=== PATIENT | female | born 1990 | race Caucasian/White ===

== ENCOUNTER → 2022-03-07 | Outpatient (CLI) | payer OTHER ==
--- NOTE | 2022-03-07 11:45 | US ---
EXAMINATION TYPE: US abdomen complete DATE OF EXAM: 03/07/2022 COMPARISON: NONE CLINICAL HISTORY: R945 ABN LIVER FUNCTION.Abnormal liver function test. EXAM MEASUREMENTS: Liver Length: 14.9 cm Gallbladder Wall: .3 cm CBD: .3 cm Spleen: 12.6 cm Right Kidney: 10.3 x 4.1 x 4.4 cm Left Kidney: 12.1 x 4.9 x 4.7 cm Limitations due to body habitus. Pancreas: Obscured by bowel gas Liver: Increased attenuation Gallbladder: No stones seen Evidence for sonographic Ho's sign: No CBD: wnl Spleen: wnl Right Kidney: wnl Left Kidney: wnl Upper IVC: wnl Abd Aorta: wnl The visualized liver is heterogeneously hyperechoic. Evaluation for focal masses suboptimal due to th e heterogeneity. No surrounding ascites. The intrahepatic portion of the IVC and proximal abdominal a galilea are within normal limits. There is no evidence of cholelithiasis. Common bile duct is unremark able. The visualized portions of the pancreas are homogenous. Portions are obscured by overlying bow el gas. The spleen is unremarkable. Kidneys are symmetric and free of hydronephrosis. No renal les ions are seen. IMPRESSION: Heterogeneous hyperechoic appearance of liver is likely on the basis of diffuse fatty inf iltration.
== END | disposition home or self-care (01) ==
LOC: RADUSWWP 09:55
PROVIDERS: ATTEND Internal Medicine
DX: K76.0 Fatty (change of) liver, not elsewhere classified (principal)
CPT/HCPCS: 76700

== ENCOUNTER → 2024-05-20 | Outpatient (CLI) | payer OTHER ==
--- NOTE | 2024-05-20 12:26 | XR ---
Left knee. HISTORY: Pain COMPARISON: None. TECHNIQUE: 3 views of the left knee were obtained. FINDINGS: There is no fracture, dislocation or focal intraosseous abnormality. There is no joint effusion. Ther e are no soft tissue abnormalities. There is possible mild narrowing of the medial compartment knee. IMPRESSION: 1. No evidence of acute trauma. 2. Possible mild degenerative change of the medial compartment the knee.
== END | disposition home or self-care (01) ==
LOC: RADXRYALE 11:08
PROVIDERS: ATTEND Internal Medicine
DX: M25.562 Pain in left knee (principal)

== ENCOUNTER → 2025-02-03 | Outpatient (CLI) | payer OTHER ==
[2025-02-03 12:49] VITALS: BP 122/80; PULSE 82; RESP 18; TEMP 97.4
--- NOTE | 2025-02-03 14:26 | P.PAINPG ---
Objective - Vital Signs Vital signs: Intake & Output 02/02/25 02/03/25 02/03/25 18:59 06:59 18:59 Weight 95.254 kg PQRS Measure Charge Sheet Comment: HISTORY OF PRESENT ILLNESS: A 34 yr old female as a referral from Dr Ryan presents today w severe and chronic neck pain > 3 mo secondary to radiculopathy, spondylosis and facet arthropathy without myelopathy for evaluation. Pt states pain level is provoked at 4-6 /10 in intensity, constant, localized in the cervical spine, predominantly axial, throbbing in character w occasional shooting pain towards the RUE. Pain is provoked by over activity. Pain is alleviated by PT x 6 wks which she is currently in, physician guided home exercises/ 4-5 times weekly since Jan 2025, medications, repositioning and rest . Cervical disability score at 23. PMH: OA PSH: Denies SH: Negative x3 FH: Non contributory All: See list Meds: See list incl Ibu, Neurontin REVIEW OF ORGAN SYSTEMS: CONSTITUTIONAL: No fevers or chills. No recent weight loss. NEUROLOGICAL: + numbness and tingling along the distal extremities. No seizure disorders or headaches. MUSCULOSKELETAL: + pain PSYCHIATRIC: Denies current depression or suicidal though ts. Physical Examinations : Constitutional : Cooperative , not in acute distress . Neurologic : Cranial nerve II to XII intact. No focal neurological deficits. Psychiatric : alert & oriented x 3. Matching mood & appropriate affect. Judgment & insight intact. Musculoskeletal : Cervical Spine Motor strength in the deltoid and biceps: Normal right side. Normal Left side Motor strength biceps and the wrist extensors: Normal right side . Normal left side Motor strength in the triceps muscle: Normal right side. Normal left side Deep tendon reflexes: Normal at the biceps. Normal at Brachioradialis. Normal at triceps Vertebral body tenderness to deep palpation over C6 Cervical facet loading test: positive bilaterally Spurling test: positive R C5-C6 Neck distraction test: positive R C6-C7 Aamir sign: positive bilaterally Lumbar spine Motor strength lower extremities ,thigh and legs 5/5 Right side , 5/5 Left side Deep tendon reflexes : Normal Knee Jerk. Normal Ankle Jerk Vertebral body tenderness over Huffman Test positive Lumbar facet Loading Test: positive Right / positive Left Range of motion of the lumbar spine Flexion 30 degrees, extension 10 degrees Straight Leg Raise test: Left/ Right positive at degrees Erika test: positive right / positive left. Severe tenderness over the Sacroiliac joint on the Right / Left sides Gaenslen test: positive bilaterally Seated flexion test: positive bilaterally. Sacral spine : Severe tenderness over the Sacroiliac joint: right side / left side Range of motion: Flexion of the lumbar spine <60 degrees Range of motion: Extension of the lumbar spine <20 degrees Gaenslen's Test positive Erika test: positive right side / left side Thigh Thrust Test Sacral Thrust Test Imaging: MRI non contrast lumbar spine from 01/03/25 reviewed MRI non contrast thoracic spine from 12/31/24 reviewed Assessment/ Plan : C5-C7 radiculopathy, Thoracic scoliosis, Tr6-T12 facet arthropathy Recommendation of WILMA C6-C7 #1. Risks, benefits of procedure discussed and patient verbalized understanding. Admits to anti- coagulant use or medical history of diabetes. Protocol for discontinuation/ continuation of medications antonia procedure discussed. All questions answered. I have spent greater than 30 minutes on patient care today. Dr Mcclelland was available by phone for the evaluation of this patient. The time was used to review the medical records including relevant urine studies and Prescription history (MAPs), review of the available imaging, evaluation and examination of the patient, coordination of care with the medical staff and if applicable referring physicians, as well as creation of the medical record - Pain Location Neck Non-Pharmacological Interventions: Position/Reposition PQRS Narrative: Smoking Status Never smoker Home Medications: Ambulatory Orders Pediatric Multivitamin No.76 [Gummy Dinos] 2 tab PO DAILY 10/23/15 Ferrous Sulfate [Feosol] 325 mg PO DAILY #60 tab 10/24/15 diazePAM [Valium] 5 mg PO DAILY 1 Days #2 tab 02/03/25 Controlled Substance Measures - Controlled Substance Measures Is patient prescribed a controlled substance at discharge?: Yes When asked, does pt state using other controlled substances?: No If prescribed controlled substance>3 days was MAPS reviewed?: Prescribed <3 Days
== END ==
LOC: PNWHC3 11:56
PROVIDERS: ATTEND Specialist
DX: M47.22 Other spondylosis with radiculopathy, cervical region (principal); M47.814 Spondylosis without myelopathy or radiculopathy, thoracic region; M41.9 Scoliosis, unspecified
CPT/HCPCS: 99211

== ENCOUNTER → 2025-03-04 | Day surgery (SDC) | payer OTHER ==
[~2025-03-04] MED LIST: DEXAMETHASONE SOD PHOSPHATE 10 MG/ML 1 ML VIAL ONE; IOPAMIDOL M200 10 ML VIAL ONE; LACTATED RINGERS 1,000 ML IV SCH
[2025-03-04 09:41] VITALS: TEMP 97
[2025-03-04 10:34] VITALS: RESP 16
--- NOTE | 2025-03-04 10:40 | FL ---
EXAMINATION TYPE: FL guided pain mgmt statistic Intraoperative/procedural fluoroscopic services were provided. CLINICAL INDICATION:Female, 34 years old with history of M54.12 CERV EPIDURAL STEROID INJ; , PHH FINDINGS: Single fluoroscopic image demonstrating cervical epidural steroid injection. No radiographic evidence for complication. Total fluoroscopy time is 14.2 seconds. DAP: [id number] [id number] Please see the operative/procedural note for further details. [facility], , 03/04/2025 10:37 AM
[2025-03-04 10:47] VITALS: BP 106/73; PULSE 62
--- NOTE | 2025-03-04 11:33 | P.PCN ---
Description of Procedure: PROCEDURE 1. Injection of radio contrast material into cervical epidural space, cervical epidurogram, interpretation of cervical epidurogram, Cervical epidural steroid injection under fluoroscopic guidance, C5-6 (fluoroscopy images available in the radiology department ) 2. Cervical epidurogram. PREOPERATIVE DIAGNOSIS: 1- Cervical Degenerative Disc Diseases 2- Cervical radiculopathy., 3-cervical spondylosis with cervical Facet arthropathy without myelopathy.4-cervical spinal stenosis POSTOPERATIVE DIAGNOSIS: : 1- Cervical Degenerative Disc Diseases , 2- Cervical radiculopathy. 3-,cervical spondylosis with cervical Facet arthropathy without myelopathy. 4-cervical spinal stenosis ANESTHESIA: Local anesthetics infiltration. In the OR continuous pulse ox, EKG, blood pressure and verbal communication was maintained. EBL : None PROCEDURE INDICATION: The patient with neck pain and radiculitis unresponsive to conservative treatment consents for procedure. Discussed the procedure, alternatives and possible complications which may include increased pain, infection, bleeding, nerve damage, paralysis all of which could be permanent. Patient understands and all questions were answered. PROCEDURE DESCRIPTION : After getting consent patient was taken to the OR , positioned in prone position and time out was completed. A pillow was placed under the patients chest to increase the cervical interlaminar space. The cervical area was prepped and draped in the usual sterile fashion. Using anterior-posterior fluoroscopy, interlaminar space was identified and the skin over this site was marked and then infiltrated with 1% lidocaine subcutaneously. Subsequently, a 20-gauge 3-1/2-inch Tuohy epidural needle was inserted and advanced toward the epidural space with the loss of resistance technique using a syringe filled with preservative-free normal saline and guided by AP and lateral fluoroscopy. Negative CSF, negative blood, negative paresthesia. The correct needle position in the epidural space was verified with the injection of 2 mL of the water soluble contrast dye [id number]-[id number] and observing an excellent epidurogram with the epidural spread of the dye, after repeat negative aspiration 3 mL solution was injected which consists of 1 mL of preservative-free normal saline mixed with 2 mL of 20 mg dexamethasone and a washout of epidurogram was seen. Needle was withdrawn intact, skin was cleansed, and bandages were applied. Disposition: Patient tolerated the procedure well. No complication. Patient was placed in supine position and transferred to the recovery room area in stable condition and there was no evidence of upper or lower extremity motor or sensory deficit after the procedure patient was discharged from recovery room after discharge criteria met and home discharge instructions was given by the staff and patient will follow with the pain clinic in 2-4 weeks
== END ==
LOC: ORPAIN 08:30
PROVIDERS: ATTEND Pain Medicine Interventional Pain Medicine
DX: M50.10 Cervical disc disorder with radiculopathy, unspecified cervical region (principal); M48.02 Spinal stenosis, cervical region; M47.22 Other spondylosis with radiculopathy, cervical region
CPT/HCPCS: 81025; 62321; J1100; Q9966

== ENCOUNTER 2025-05-01 21:38 | Emergency (ER) | payer OTHER ==
[2025-05-01] MEDS: KETOROLAC 15 MG/ML 1 ML VIAL IVP STA (22:18)
[2025-05-01] MEDS: SODIUM CHLORIDE 0.9% 1,000 ML IV SCH (22:19)
[2025-05-01] MEDS: HYDROmorphone 1 MG/ML 1 ML SYRINGE IVP STA (22:20)
--- NOTE | 2025-05-01 22:32 | ED ---
Back Pain HPI - General Chief Complaint: Back Pain/Injury Stated Complaint: Back Pain Time Seen by Provider: 05/01/25 21:40 Source: patient, EMS, RN notes reviewed, old records reviewed Limitations: physical limitation - History of Present Illness Initial Comments: This is a 34 female presenting today for back pain. Patient has history of recent back surgery now complaining of severe pain in her back at surgical site. Significant swelling and edema noted in the back no fevers patient feels short of breath no lightheadedness or weakness currently, she occasionally does have chest pain mainly severe back pain MD Complaint: back pain, back injury -: days(s) Similar Symptoms Previously: Yes Place: home Radiation: none Severity: moderate Severity scale (1-10): 7 Quality: stabbing Consistency: constant Improves With: none Worsens With: none Context: other (Recent surgery) Associated Symptoms: denies other symptoms Treatments Prior to Arrival: other - Related Data Home Medications Medication Instructions Recorded Confirmed Citalopram Hydrobromide 10 mg PO DAILY 03/02/25 03/02/25 [Citalopram HBr] Ibuprofen [Motrin Ib] 400 mg PO Q6H PRN 03/02/25 03/02/25 Previous Rx's Medication Instructions Recorded diazePAM [Valium] 5 mg PO DAILY 1 Days #2 tab 02/03/25 Allergies Allergy/AdvReac Type Severity Reaction Status Date / Time No Known Allergies Allergy Verified 05/01/25 21:56 Review of Systems ROS Statement: Those systems with pertinent positive or pertinent negative responses have been documented in the HPI. ROS Other: All systems not noted in ROS Statement are negative. Past Medical History Past Medical History: Musculoskeletal Disorder Additional Past Medical History / Comment(s): scoliosis History of Any Multi-Drug Resistant Organisms: None Reported Past Surgical History: No Surgical Hx Reported Past Anesthesia/Blood Transfusion Reactions: No Reported Reaction Past Psychological History: Anxiety Smoking Status: Never smoker, Unknown if ever smoked - Past Family History Mother Family Medical History: Rheumatoid Arthritis (RA) Father Family Medical History: Hypertension General Exam Limitations: physical limitation General appearance: alert, in no apparent distress Head exam: Present: atraumatic, normocephalic, normal inspection Eye exam: Present: normal appearance, PERRL, EOMI. Absent: scleral icterus, conjunctival injection, periorbital swelling ENT exam: Present: normal exam, mucous membranes moist Neck exam: Present: normal inspection. Absent: tenderness, meningismus, lymphadenopathy Respiratory exam: Present: normal lung sounds bilaterally. Absent: respiratory distress, wheezes, rales, rhonchi, stridor Cardiovascular Exam: Present: regular rate, normal rhythm, normal heart sounds. Absent: systolic murmur, diastolic murmur, rubs, gallop, clicks GI/Abdominal exam: Present: soft, normal bowel sounds. Absent: distended, tenderness, guarding, rebound, rigid Extremities exam: Present: normal inspection, full ROM, normal capillary refill. Absent: tenderness, pedal edema, joint swelling, calf tenderness Back exam: Present: normal inspection Neurological exam: Present: alert, oriented X3, CN II-XII intact Psychiatric exam: Present: normal affect, normal mood Skin exam: Present: warm, dry, intact, normal color. Absent: rash Course Vital Signs 05/01/25 05/01/25 05/02/25 21:47 23:30 01:11 Temperature 99.1 F 98.5 F 98.3 F Pulse Rate 104 H 99 95 Respiratory 19 19 18 Rate Blood Pressure 90/50 99/55 119/84 O2 Sat by Pulse 97 98 100 Oximetry - Reevaluation(s) Reevaluation #1: 05/01/25 23:07 Medical records reviewed Reevaluation #2: 05/01/25 23:07 Patient symptoms improved here in the ER Reevaluation #3: 05/01/25 23:07 Patient informed of results questions answered Reevaluation #4: Was pt. sent in by a medical professional or institution (, PA, PUG MACHINE OPERATOR, urgent care, hospital, or shelter...) When possible be specific @ -no Did you speak to anyone other than the patient for history (EMS, parent, family, police, friend...)? What history was obtained from this source @ -no Did you review nursing and triage notes (agree or disagree)? Why? @ -agree Are old charts reviewed (outside hosp., previous admission, EMS record, old EKG, old radiological studies, urgent care reports/EKG's, shelter records)? Report findings @ -yes Differential Diagnosis (chest pain, altered mental status, abdominal pain women, abdominal pain men, vaginal bleeding, weakness, fever, dyspnea, syncope, headache, dizziness, GI bleed, back pain, seizure, CVA, palpatations, mental health, musculoskeletal)? @ -prior EKG interpreted by me (3pts min.). @ -yes X-rays interpreted by me (1pt min.). @ -yes negative for acute disease CT interpreted by me (1pt min.). @ -no U/S interpreted by me (1pt. min.). @ -no What testing was considered but not performed or refused? (CT, X-rays, U/S, labs)? Why? @ -none What meds were considered but not given or refused? Why? @ -none Did you discuss the management of the patient with other professionals (professionals i.e. Dr., PA, PUG MACHINE OPERATOR, lab, RT, psych nurse, geriatric social worker, nuclear medicine chief technologist, teacher, custodial officer, director case)? Give summary @ -no Was smoking cessation discussed for >3mins.? @ -no Was critical care preformed (if so, how long)? @ -no Were there social determinants of health that impacted care today? How? (Ho melessness, low income, unemployed, alcoholism, drug addiction, transportation, low edu. Level, literacy, decrease access to med. care, penitentiary, rehab)? @ -none Was there de-escalation of care discussed even if they declined (Discuss DNR or withdrawal of care, Hospice)? DNR status @ -no What co-morbidities impacted this encounter? (DM, HTN, Smoking, COPD, CAD, Cancer, CVA, ARF, Chemo, Hep., AIDS, mental health diagnosis, sleep apnea, morbid obesity)? @ -none Was patient admitted / discharged? Hospital course, mention meds given and route, prescriptions, significant lab abnormalities, going to OR and other pertinent info. @ - Undiagnosed new problem with uncertain prognosis? @ -no Drug Therapy requiring intensive monitoring for toxicity (Heparin, Nitro, Insulin, Cardizem)? @ -no Were any procedures done? @ -no Diagnosis/symptom? @ - Acute, or Chronic, or Acute on Chronic? @ -Acute Uncomplicated (without systemic symptoms) or Complicated (systemic symptoms)? @ -Complicated Side effects of treatment? @ -no Exacerbation, Progression, or Severe Exacerbation? @ -exacerbation Poses a threat to life or bodily function? How? (Chest pain, [place], [place], pneumonia, PE, COPD, DKA, ARF, appy, cholecystitis, CVA, Diverticulitis, Homicidal, Suicidal, threat to staff... and all critical care pts) @ -yes Reevaluation #5: Differential Chest Pain: Stable Angina, Unstable Angina, STEMI, NSTEMI Aortic Dissection, Pneumothorax, Musculoskeletal, Esophageal Spasm GERD, Cholecystitis, Pancreatitis, Zoster, this is not meant to be an all-inclusive list. Differential Back Pain: Strain, zoster, cauda equina syndrome, epidural abscess, vertebral osteomyel itis, discitis, fracture, subluxation, disc herniation, DJD, spinal stenosis, dissection, AAA, pancreatitis, peptic ulcer disease, pyelonephritis, kidney stone, this is not meant to be an all-inclusive list. Medical Decision Making - Medical Decision Making 34 female with postsurgical pain. Patient to follow-up outpatient with her surgeon. CT scanning lab testing negative here in the ER patient can be discharged home - Lab Data Result diagrams: 05/01/25 22:24 05/01/25 22:24 Lab Results 05/01/25 05/01/25 05/01/25 Range/Units 22:24 22:24 22:24 WBC 9.70 (4.50-10.00) 10*3/uL RBC 3.03 L (4.10-5.20) 10*6/uL Hgb 9.1 L (12.0-15.0) g/dL Hct 27.5 L (37.2-46.3) % MCV 90.8 (80.0-97.0) fL MCH 30.0 (27.0-32.0) pg MCHC 33.1 (32.0-37.0) g/dL Plt Count 468 H (140-440) 10*3/uL MPV 8.9 L (9.5-12.2) fL Immature Gran % (Auto) 0.6 % Neutrophils % 74.2 % Lymphocytes % 19.7 % Monocytes % 4.5 % Eosinophils % 0.4 % Basophils % 0.6 % Immature Gran # 0.06 H (0.00-0.04) 10*3/uL Neutrophils # 7.19 (1.80-7.70) 10*3/uL Lymphocytes # 1.91 (0.90-5.00) 10*3/uL Monocytes # 0.44 (0.20-1.00) 10*3/uL Eosinophils # 0.04 (0.04-0.35) 10*3/uL Basophils # 0.06 (0.00-0.10) 10*3/uL Immature Plt Fraction 1.0 L (1.1-6.1) % PT 11.1 (10.0-12.5) sec INR 1.0 (<1.2) APTT 18.0 L (22.0-30.0) sec D-Dimer 3.67 H (<0.60) mg/L FEU Sodium 139 (137-145) mmol/L Potassium 4.5 (3.5-5.1) mmol/L Chloride 104 (98-107) mmol/L Carbon Dioxide 25 (22-30) mmol/L Anion Gap 10 mmol/L BUN 9 (7-17) mg/dL Creatinine 0.40 L (0.52-1.04) mg/dL Est GFR (CKD-EPI)AfAm >90 (>60 ml/min/1.73 sqM) Est GFR (CKD-EPI)NonAf >90 (>60 ml/min/1.73 sqM) Glucose 96 (74-99) mg/dL Lactic Ac Sepsis Rflx Plasma Lactic Acid Flex (0.7-2.0) mmol/L Calcium 9.4 (8.4-10.2) mg/dL Phosphorus 4.1 (2.5-4.5) mg/dL Magnesium 2.1 (1.6-2.3) mg/dL Total Bilirubin 0.5 (0.2-1.3) mg/dL AST 44 H (14-36) U/L ALT 40 H (4-34) U/L Alkaline Phosphatase 124 (38-126) U/L Troponin I (0.000-0.034) ng/mL NT-Pro-B Natriuret Pep 171 pg/mL Total Protein 6.4 (6.3-8.2) g/dL Albumin 3.6 (3.5-5.0) g/dL 05/01/25 05/01/25 05/01/25 Range/Units 22:24 22:24 22:53 WBC (4.50-10.00) 10*3/uL RBC (4.10-5.20) 10*6/uL Hgb (12.0-15.0) g/dL Hct (37.2-46.3) % MCV (80.0-97.0) fL MCH (27.0-32.0) pg MCHC (32.0-37.0) g/dL Plt Count (140-440) 10*3/uL MPV (9.5-12.2) fL Immature Gran % (Auto) % Neutrophils % % Lymphocytes % % Monocytes % % Eosinophils % % Basophils % % Immature Gran # (0.00-0.04) 10*3/uL Neutrophils # (1.80-7.70) 10*3/uL Lymphocytes # (0.90-5.00) 10*3/uL Monocytes # (0.20-1.00) 10*3/uL Eosinophils # (0.04-0.35) 10*3/uL Basophils # (0.00-0.10) 10*3/uL Immature Plt Fraction (1.1-6.1) % PT (10.0-12.5) sec INR (<1.2) APTT (22.0-30.0) sec D-Dimer (<0.60) mg/L FEU Sodium (137-145) mmol/L Potassium (3.5-5.1) mmol/L Chloride (98-107) mmol/L Carbon Dioxide (22-30) mmol/L Anion Gap mmol/L BUN (7-17) mg/dL Creatinine (0.52-1.04) mg/dL Est GFR (CKD-EPI)AfAm (>60 ml/min/1.73 sqM) Est GFR (CKD-EPI)NonAf (>60 ml/min/1.73 sqM) Glucose (74-99) mg/dL Lactic Ac Sepsis Rflx Y Plasma Lactic Acid Flex 2.1 H* (0.7-2.0) mmol/L Calcium (8.4-10.2) mg/dL Phosphorus (2.5-4.5) mg/dL Magnesium (1.6-2.3) mg/dL Total Bilirubin (0.2-1.3) mg/dL AST (14-36) U/L ALT (4-34) U/L Alkaline Phosphatase (38-126) U/L Troponin I <0.012 (0.000-0.034) ng/mL NT-Pro-B Natriuret Pep pg/mL Total Protein (6.3-8.2) g/dL Albumin (3.5-5.0) g/dL - EKG Data -: EKG Interpreted by Me (EKG sinus 92 TN 165 QRS 97 QTc 411) - Radiology Data Radiology results: report reviewed (CT angio chest CT abdomen pelvis negative for acute disease), image reviewed Disposition Clinical Impression: Postoperative pain Disposition: HOME SELF-CARE Condition: Good Instructions (If sedation given, give patient instructions): Pain Management After Surgery (DC) Is patient prescribed a controlled substance at d/c from ED?: No Referrals: Lizabeth Herrera MD [Primary Care Provider] - 1-2 days Time of Disposition: 23:45
[2025-05-01 22:42] LABS: Basophils # (A) 0.06 10*3/uL (0.00-0.10); Basophils % (A) 0.6 %; Eosinophils # (A) 0.04 10*3/uL (0.04-0.35); Eosinophils % (A) 0.4 %; HCT 27.5 % (37.2-46.3); HGB 9.1 g/dL (12.0-15.0); Lymphocytes # (A) 1.91 10*3/uL (0.90-5.00); Lymphocytes % (A) 19.7 %; MCHC 33.1 g/dL (32.0-37.0); MCV 90.8 fL (80.0-97.0); Mean Platelet Volume 8.9 fL (9.5-12.2); Monocytes # (A) 0.44 10*3/uL (0.20-1.00); Monocytes % (A) 4.5 %; Neutrophils # (A) 7.19 10*3/uL (1.80-7.70); Neutrophils % (A) 74.2 %; Platelet Count 468 10*3/uL (140-440); RBC 3.03 10*6/uL (4.10-5.20); RDW 12.6 % (11.5-14.5)
[2025-05-01 22:53] LABS: ALT 40 U/L (4-34); AST 44 U/L (14-36); African American GFR (CKD) >90 (>60 ml/min/1.73 sqM); Albumin 3.6 g/dL (3.5-5.0); Alkaline Phosphatase 124 U/L (38-126); Anion Gap 10 mmol/L; Blood Urea Nitrogen 9 mg/dL (7-17); Calcium 9.4 mg/dL (8.4-10.2); Carbon Dioxide 25 mmol/L (22-30); Chloride 104 mmol/L (98-107); Glucose 96 mg/dL (74-99); Magnesium 2.1 mg/dL (1.6-2.3); Non-African American GFR(CKD) >90 (>60 ml/min/1.73 sqM); Phosphorus 4.1 mg/dL (2.5-4.5); Potassium 4.5 mmol/L (3.5-5.1); Sodium 139 mmol/L (137-145); Total Bilirubin 0.5 mg/dL (0.2-1.3); Total Protein 6.4 g/dL (6.3-8.2)
[2025-05-01 23:00] LABS: NT-Pro-B-Type Natriuretic Pept 171 pg/mL
[2025-05-01 23:06] LABS: Prothrombin Time 11.1 sec (10.0-12.5)
--- NOTE | 2025-05-02 00:09 | CT ---
EXAM: CT Angiography Chest With Intravenous Contrast CLINICAL HISTORY: Evaluate for potential pulmonary embolism TECHNIQUE: Axial computed tomographic angiography images of the chest with intravenous contrast. CTDI is 27.6 mGy and DLP is 804.8 mGy-cm. This CT exam was performed using one or more of the following dose reduction techniques: automated exposure control, adjustment of the mA and/or kV according to patient size, and/or use of iterative reconstruction technique. MIP reconstructed images were created and reviewed. COMPARISON: No relevant prior studies available. FINDINGS: Limitations: There is diffuse respiratory artifact, which degrades image quality throughout the examination. Pulmonary arteries: The examination is near nondiagnostic for evaluation of potential pulmonary embolism, secondary to diffuse extensive respiratory artifact with significant beam hardening artifact from adjacent spinal hardware. There is no obvious large/central saddle pulmonary embolism extending across the midline; however, evaluation of the segmental and subsegmental branches is nondiagnostic. Aorta: No acute findings. No thoracic aortic aneurysm. Lungs: Accounting for limitations with diffuse extensive respiratory artifact, there is no obvious focal airspace consolidation identified. Presumed dependent subsegmental atelectatic changes noted. Pleural space: Unremarkable. No significant effusion. No pneumothorax. Heart: No CTA evidence for right heart strain. No cardiomegaly. No significant pericardial effusion. Bones/joints: Extensive posterior fusion from T2 through L1 levels with pedicle screws and paraspinal rods. Laminectomy defects noted from T3 through T11 levels. No acute osseous abnormality. Incidental scoliosis, convex right. No dislocation. Soft tissues: Unremarkable. Lymph nodes: Unremarkable. No enlarged lymph nodes. IMPRESSION: 1. The examination is near nondiagnostic for evaluation of potential pulmonary embolism, secondary to diffuse extensive respiratory artifact with significant beam hardening artifact from adjacent spinal hardware. There is no obvious large/central saddle pulmonary embolism extending across the midline; however, evaluation of the segmental and subsegmental branches is nondiagnostic. No CT evidence for right heart strain. 2. Accounting for limitations with diffuse extensive respiratory artifact, there is no obvious focal airspace consolidation identified. Presumed dependent subsegmental atelectatic changes noted. No pleural effusion or pneumothorax.
--- NOTE | 2025-05-02 00:17 | CT ---
EXAM: CT Abdomen and Pelvis With Intravenous Contrast CLINICAL HISTORY: pain TECHNIQUE: Axial computed tomography images of the abdomen and pelvis with intravenous contrast. CTDI is 41 mGy and DLP is 1983.8 mGy-cm. This CT exam was performed using one or more of the following dose reduction techniques: automated exposure control, adjustment of the mA and/or kV according to patient size, and/or use of iterative reconstruction technique. COMPARISON: No relevant prior studies available. FINDINGS: Limitations: There is diffuse respiratory artifact, which degrades image quality throughout the examination. Lung bases: For findings regarding the lung bases, please see the CT report of the chest performed concurrently. ABDOMEN: Liver: Hepatic steatosis. Gallbladder and bile ducts: 9 mm calcified gallstone noted layering posteriorly in the gallbladder near the gallbladder neck. The gallbladder is moderately distended. No definite CT evidence for gallbladder wall thickening or biliary dilatation. Pancreas: Unremarkable. No mass. No ductal dilation. Spleen: Unremarkable. No splenomegaly. Adrenals: Unremarkable. No mass. Kidneys and ureters: The kidneys demonstrate normal enhancement without pyelonephritis or hydronephrosis. Delayed phase imaging demonstrates normal excreted contrast in the renal collecting systems and proximal ureters. Stomach and bowel: The stomach is mildly distended with fluid and gas. No gastric mucosal thickening. No evidence for focal high-grade bowel obstruction. No asymmetric bowel mucosal abnormality. Moderate stool burden. No appreciable diverticulitis. PELVIS: Appendix: A normal-caliber appendix is noted extending medially from the cecum. Bladder: Unremarkable. No mass. Reproductive: An IUD is noted centrally in the anteverted uterus. ABDOMEN and PELVIS: Intraperitoneal space: No free intraperitoneal fluid or definite pneumoperitoneum. Bones/joints: Extensive thoracolumbar spine instrumentation noted extending to the L1 vertebral body level. No acute osseous abnormality. No dislocation. Soft tissues: Postsurgical changes involving the dorsal subcutaneous fat with associated asymmetric fullness of the left paraspinal dorsal musculature involving the inferior margin of the spinal instrumentation. No other significant soft tissue abnormality identified. Mild diffuse soft tissue edema may be related to patient's fluid status. Vasculature: Unremarkable. No abdominal aortic aneurysm. Lymph nodes: Unremarkable. No enlarged lymph nodes. IMPRESSION: 1. 9 mm calcified gallstone noted layering posteriorly in the gallbladder near the gallbladder neck. The gallbladder is moderately distended. No definite CT evidence for gallbladder wall thickening or biliary dilatation. The clinical significance of this finding is indeterminate. 2. No evidence for focal high-grade bowel obstruction. No asymmetric bowel mucosal abnormality. Moderate stool burden. No appreciable diverticulitis. No free intraperitoneal fluid or definite pneumoperitoneum. Incidental normal-caliber appendix. 3. Mild diffuse soft tissue edema may be related to patient's fluid status.
[2025-05-02 01:13] VITALS: BP 119/84; PULSE 95; RESP 18; TEMP 98.3
== END 2025-05-02 01:32 | disposition home or self-care (01) ==
LOC: EC 21:38
DX: G89.18 Other acute postprocedural pain (principal)
CPT/HCPCS: 36415; 93005; 85379; 83880; 80053; 83605; 83735; 84100; 84484; 85025; 85610; 85730; 71275; 74177; 99284; 96374; 96375; 96361; J1171; J1885; Q9967